=== PATIENT | male | born 1965 | race Caucasian/White ===

== ENCOUNTER 2024-01-01 21:38 | Observation (INO) | payer BC ==
[2024-01-01 22:03] VITALS: RESP 20; TEMP 97.9; BMI 26.8
[2024-01-01] MEDS: SODIUM CHLORIDE 0.9% 1000 ML INFUS.BAG IV STA (22:30)
[2024-01-01 22:43] LABS: HEMATOCRIT 23.1 % (35.4-49); HEMOGLOBIN 7.8 GM/dL (11.7-16.9); MCH 31.3 pg (25.7-33.7); MCHC 33.6 g/dl (32.0-35.9); MEAN PLT VOLUME 7.6 fl (7.5-11.1); PLATELET COUNT 224 10^3/uL (134-434); RBC 2.49 M/mm3 (4.00-5.60); RDW 17.8 % (11.9-15.9); WHITE BLOOD COUNT 13.1 K/mm3 (4.0-10.0)
[2024-01-01 22:50] LABS: INR 1.08 (0.83-1.09); PROTHROMBIN TIME (PATIENT) 12.2 SEC (9.7-13.0)
[2024-01-01 22:53] LABS: ACTIVATED PTT 21.8 SECONDS (25.2-36.5)
[2024-01-01 23:00] LABS: ALBUMIN 2.8 g/dl (3.4-5.0); CALCIUM 7.5 mg/dL (8.5-10.1); MAGNESIUM 1.9 mg/dL (1.8-2.4)
[2024-01-01 23:01] LABS: BLOOD UREA NITROGEN 26.1 mg/dL (7-18)
[2024-01-01 23:04] LABS: CREATININE 0.7 mg/dL (0.55-1.3)
[2024-01-01 23:05] LABS: BILIRUBIN,TOTAL 0.3 mg/dL (0.2-1)
[2024-01-01 23:18] LABS: ANISOCYTOSIS 3+; MACROCYTOSIS 0; OVALOCYTE 1+; TARGET CELLS 2+
[2024-01-02] MEDS: metFORMIN HCL 500 MG TABLET (FP) PO SCH ×2 (00:43→08:36)
[2024-01-02] MEDS: SODIUM CHLORIDE 1,000 ML IV SCH (03:40)
[2024-01-02] MEDS: SODIUM CHLORIDE 1,000 ML IV STA (04:24)
[2024-01-02] MEDS ORDERED: LEVOTHYROXINE NA 100 MCG TABLET (FP) ONE (04:27)
[2024-01-02] MEDS ORDERED: LEVOTHYROXINE NA 25 MCG TABLET (FP) ONE (04:27)
[2024-01-02] MEDS: LEVOTHYROXINE NA 125 MCG TABLET (FP) PO SCH (07:05)
[2024-01-02] MEDS ORDERED: metFORMIN HCL 500 MG TABLET (FP) ONE (08:31)
[2024-01-02 08:50] LABS: HEMATOCRIT 22.7 % (35.4-49); HEMOGLOBIN 7.4 GM/dL (11.7-16.9); MCH 30.2 pg (25.7-33.7); MCHC 32.5 g/dl (32.0-35.9); MEAN CELL VOLUME 92.9 fl (80-96); MEAN PLT VOLUME 8.4 fl (7.5-11.1); PLATELET COUNT 173 10^3/uL (134-434); RBC 2.44 M/mm3 (4.00-5.60); RDW 17.8 % (11.9-15.9)
[2024-01-02 08:57] LABS: WHITE BLOOD COUNT 39.9 K/mm3 (4.0-10.0)
[2024-01-02 09:03] LABS: POTASSIUM 3.7 mmol/L (3.5-5.1)
[2024-01-02 09:07] LABS: IRON SERUM 183 ug/dL (50-175); TOTAL IRON BINDING CAPACITY 196 ug/dL (250-450)
[2024-01-02 09:15] LABS: CALCIUM 7.5 mg/dL (8.5-10.1)
[2024-01-02 09:16] LABS: ALBUMIN 2.8 g/dl (3.4-5.0); BLOOD UREA NITROGEN 19.2 mg/dL (7-18)
[2024-01-02 09:17] VITALS: BP 123/63; PULSE 113
[2024-01-02 09:18] LABS: CREATININE 0.6 mg/dL (0.55-1.3)
[2024-01-02 09:20] LABS: BILIRUBIN,TOTAL 0.2 mg/dL (0.2-1); TOT PROT 4.7 g/dl (6.4-8.2)
[2024-01-02] MEDS ORDERED: predniSONE 10 MG TABLET (UD) PO SCH (10:00)
[2024-01-02] MEDS ORDERED: ACYCLOVIR 200 MG CAPSULE ONE (10:44)
[2024-01-02] MEDS ORDERED: ENOXAPARIN NA (PORCINE) 40 MG/0.4 ML DISP.SYRIN SQ ONE (10:44)
[2024-01-02] MEDS: ENOXAPARIN NA (PORCINE) 40 MG/0.4 ML DISP.SYRIN SQ SCH (10:56)
[2024-01-02] MEDS: ALLOPURINOL 300 MG TABLET (FP) PO SCH (10:56)
[2024-01-02] MEDS: ACYCLOVIR 400 MG TABLET PO SCH (10:56)
[2024-01-02 14:04] LABS: LDH 206 U/L (87-246)
== END 2024-01-02 12:13 | disposition left against medical advice (07) ==
LOC: JER 21:38 → JERBED 01-02 01:08
PROVIDERS: ADMIT Student in an Organized Health Care Education/Training Program; ATTEND Internal Medicine
PROC: 3E0337Z Introduction of Electrolytic and Water Balance Substance into Peripheral Vein, Percutaneous Approach (ICD-10-PCS; principal; 2024-01-02)
DX: R55 Syncope and collapse (principal); E11.9 Type 2 diabetes mellitus without complications; C85.90 Non-Hodgkin lymphoma, unspecified, unspecified site; R71.0 Precipitous drop in hematocrit; Z79.899 Other long term (current) drug therapy; Z85.850 Personal history of malignant neoplasm of thyroid; E78.5 Hyperlipidemia, unspecified; I10 Essential (primary) hypertension
CPT/HCPCS: 36415; 71045-TC-FY; 80053; 82728; 82962; 83010; 83540; 83550; 83605; 83615; 83735; 84100; 84484; 85025; 85027; 85045; 85610; 85730; 93005; 93010; 99285-25; G0378